=== PATIENT | female | born 1935 | race Caucasian/White ===

== ENCOUNTER → 2017-11-20 | Outpatient (CLI) | payer MEDICARE, OTHER ==
[~2017-11-20] MED LIST: DITROPAN 5MG TAB5 MG PO; DULCOLAX S10 MG/SUPP RC; GOOD NEIGH1200 MG/15 PO; LUTEIN20 M1 PO; MASON NATURAL1200 MG PO; NORCO 325 MG-51 TAB PO; OS-CAL 500 + D1 TAB PO; PROZAC 20MG20 MG PO; SENOKOT S 50 MG1 TAB PO; THERAGRAN M1 UDTAB PO; TOPROL XL 25MG25 MG PO; TOPROL XL 50MG50 MG PO; TOPROL XL100 MG PO; TYLENOL 325MG325 MG PO; XARELTO15 MG PO; ZESTRIL 20MG TA20 MG PO
== END ==
LOC: COL.LAB 12:48
DX: Z01.812 Encounter for preprocedural laboratory examination (principal); M25.551 Pain in right hip

== ENCOUNTER 2018-09-03 10:21 | Day surgery (SDC) | payer MEDICARE, OTHER ==
[~2018-09-03] VITALS: Ht 165.1 cm; Wt 65.9 kg
[~2018-09-03 10:21] MED LIST changes: +CALCIUM 600600 M2 PO; +CALCIUM CARBON650 M2 PO; +CARDIZEM CD 18180 MG PO; +CORDARONE200 MG/TAB PO; +DESENEX TP; +DIFLUCAN150 MG PO; +MULTIPLE VITAMI1 CAP PO; +MYRBETR50MG PO; +NORCO 325 MG-7.1 TAB PO; +OMEGA-3 1000 MG1 CAP PO; +PACERONE400 MG PO; +PYRIDIUM 100MG100 MG PO; +TOVIAZ4 MG PO; +ULTRAM 50MG TAB50 MG PO; +XARELTO20 MG PO
[2018-09-03 10:45] VITALS: BP 163/86; PULSE 92; TEMP 97.6
[2018-09-03] MEDS ORDERED: VTAMINC250TA PO (10:49)
[2018-09-03] MEDS ORDERED: TOPROL XL100 MG PO (10:50)
[2018-09-03] MEDS ORDERED: WELCHOL 625MG625 MG PO (10:51)
[2018-09-03] MEDS ORDERED: PACERONE200 MG PO (10:51)
[2018-09-03 13:57] VITALS: BP 146/86; PULSE 76; TEMP 97.5
[2018-09-03] MEDS ORDERED: NORCO 325 MG-51 TAB PO (14:00)
[2018-09-03 14:15] VITALS: BP 160/78; PULSE 72
[2018-09-03 14:30] VITALS: BP 141/62; PULSE 70
== END 2018-09-03 15:10 | disposition home or self-care (01) ==
LOC: SDCO 10:21
DX: C67.9 Malignant neoplasm of bladder, unspecified (principal); I10 Essential (primary) hypertension; K21.9 Gastro-esophageal reflux disease without esophagitis; I48.91 Unspecified atrial fibrillation; F32.9 Major depressive disorder, single episode, unspecified; D64.9 Anemia, unspecified; Z90.710 Acquired absence of both cervix and uterus; Z79.01 Long term (current) use of anticoagulants; Z95.0 Presence of cardiac pacemaker; Z87.891 Personal history of nicotine dependence; Z82.49 Family history of ischemic heart disease and other diseases of the circulatory system
CPT/HCPCS: C1788; J0690; J1644; J2704; J3010; J7120

== ENCOUNTER 2018-09-30 19:47 | Inpatient (IN) | payer MEDICARE, OTHER ==
[~2018-09-30] VITALS: Ht 165.1 cm; Wt 62.3 kg
[~2018-09-30 19:47] MED LIST changes: +PACERONE200 MG PO; +VTAMINC250TA PO; +WELCHOL 625MG625 MG PO
--- NOTE | 2018-09-30 20:00 | NUR ---
Patient arrived to floor by EMS from [facility]. Patient reports some mild pain to lower Abd with movement, denies n/v at this time. Urostomy present to right lower quadrant, cloudy yellow urine present with sediment. Patient has port to right chest, accessed by [facility] ER prior to transfer. INT to right FA present as well. NS with KCL infusing at 200 ml/hr through port. Patient's family accompanied patient to floor. Vitals stable at this time. No other needs observed/reported.
[2018-09-30] MEDS ORDERED: CEFTIN 250250 MG/TAB PO (20:38)
[2018-09-30] MEDS ORDERED: K-DUR20 MEQ PO (20:41)
[2018-09-30 21:12] VITALS: BP 103/40; PULSE 70; TEMP 98.8
[2018-09-30 23:53] LABS: CALCIUM 7.1 mg/dL (8.4-10.2); CREATININE, serum 2.8 mg/dL (0.52-1.25)
[2018-09-30 23:59] LABS: POTASSIUM 2.6 mmol/L (3.4-5.0)
[2018-10-01] VITALS (7 sets, daily range): BP systolic 107–132; BP diastolic 47–59; PULSE 69–78; TEMP 97.6–98.8
[2018-10-01 05:54] LABS: MEAN CELL VOLUME 86 fl (80.0-100.0); MEAN CORPUSCULAR HGB CONC 33 g/dl (33.0-37.0); PLATELET COUNT 83 K/mm3 (130-400); RED BLOOD COUNT 2.77 M/mm3 (4.10-5.30); REDCELL DISTRIBUTION WIDTH-CV 17.4 % (11.5-14.5)
[2018-10-01 05:55] LABS: HEMATOCRIT 23.8 % (37.0-47.0); HEMOGLOBIN 7.9 g/dl (12.5-16.0); MEAN CORPUSCULAR HEMOGLOBIN 29 pg (27.0-31.0)
--- NOTE | 2018-10-01 06:02 | NUR ---
Radiology notified of consult for abcess drain. Dr. Abraham with nephrology notified of consult, stated that he would be in later this morning to see her.
[2018-10-01 06:06] LABS: INR 2.7 (0.8-3.0); PROTHROMBIN TIME 31.1 SECONDS (9.7-12.8)
[2018-10-01 06:14] LABS: ALBUMIN 2.5 gm/dL (3.5-5.0); BILIRUBIN,TOTAL 0.2 mg/dL (0.0-1.0); CALCIUM 7.3 mg/dL (8.4-10.2); CREATININE, serum 2.65 mg/dL (0.52-1.25); POTASSIUM 3.3 mmol/L (3.4-5.0)
[2018-10-01 06:17] LABS: MUCOUS Present /lpf; PH 6 (5-8); SQUAMOUS EPITHELIAL 0-2 /hpf; URINE APPEARANCE Hazy; URINE BACTERIA Moderate /hpf; URINE BILIRUBIN Negative (NEGATIVE); URINE BLOOD 2+ (NEGATIVE); URINE COLOR Yellow; URINE GLUCOSE Negative (NEGATIVE); URINE KETONE Negative (NEGATIVE); URINE LEUKOCYTE ESTERASE 3+ (NEGATIVE); URINE NITRATE Positive (NEGATIVE); URINE PROTEIN(semi-quant) 1+ (NEGATIVE); URINE UROBILINOGEN Negative (NEGATIVE)
[2018-10-01 06:22] LABS: COLLECTION METHOD CLEAN CATCH
[2018-10-01 06:56] LABS: ANISOCYTOSIS 1+; BAND 34 % (0-10); LYMPHOCYTE 13 % (20.0-51.0); METAMYELOCYTE 1 % (0-0); NEUTROPHILS 49 % (42.0-75.2); PLATELET ESTIMATE NORMAL (NORMAL)
--- NOTE | 2018-10-01 08:37 | NUR ---
Pt. pleasant in room with daughter in law at bedside. pt. shivering but no temp, warm blanket applied. Pt. complaining of pain 3-4/10 in lower abdomen. [place] 1 tab given po 5. Will reevaluate pain. Report recieved from primary RN Ruth. Dr. Francisco has been in to see pt. Bed in low position with call light within reach- maintaining NPO status.
--- NOTE | 2018-10-01 10:05 | NUR ---
SW met with the patient to discuss discharge plan. The patient lives in [place] with her daughter, Oliva. She reports independence with ADLs prior to hospitalization and has a walker. The patient's PCP is Dr. Katty Tse and she receives her medications at [facility]. She reports no difficulties obtaining her meds. The patient's advanced directives are in EMR. PT/OT have been ordered. SW to continue to follow.
--- NOTE | 2018-10-01 12:05 | NUR ---
PATIENT GOING DOWN TO CT STAT
--- NOTE | 2018-10-01 13:38 | NUR ---
Pt. is constantly getting up to go to the bathroom. Frequent episodes of diarrhea. Pt. has had 10 episodes of diarrhea since 0615 am. Pt. denies any pain- however he is grimacing and guarding. Denies wanting anything for pain. Will accept a heat pack. Pt. dressing is full with reddish/yellowish tinged drainage without odor. Cleansed again at 1330 with NS and 4x4 gauze pads applied, ABD placed over 4x4, paper tape in place to secure. Pt. in bed watching tv. Pleasant and cooperative. Call light within reach. Bed in lowest position. Reported off to primary nurseHelen.
--- NOTE | 2018-10-01 13:45 | NUR ---
LAB AT BEDSIDE TO DRAW BLOOD CULTURES
--- NOTE | 2018-10-01 13:54 | NUR ---
Pt. is pleasant lying in bed in lowest position with call light within reach. Pt. is complaining of pain in her lower abdomen and has received norco two times today - she states that that helps her pain and pain score does decrease afterwards. Pt. has had fluoroscopy and CT done today. Pt. is allowed to have water but nothing else per her primary nurse, Ruth. Report given to Ruth about pt. condition and transferring care to her.
[2018-10-02 03:22] VITALS: BP 124/59; PULSE 73; TEMP 98.3
--- NOTE | 2018-10-02 05:14 | NUR ---
PT REMAINS IN BED THIS SHIFT. APPEARED TO HAVE SLEPT WELL THIS NOC. HAD PRN PAIN MED AND NAUSEA MED AT BEDTIME. NO FURTHER C/O AFTERWARD. VOICED THAT SHE HOPES TO BE ABLE TO EAT SOMETHING AFTER HCP MAKE ROUNDS IN THE AM. NO OTHER ISSUES OR CONERNS THIS SHIFT.
[2018-10-02 06:07] LABS: MEAN CELL VOLUME 88 fl (80.0-100.0); MEAN CORPUSCULAR HGB CONC 32 g/dl (33.0-37.0); MEAN PLATELET VOLUME 10.6 fl (7.4-10.4); PLATELET COUNT 128 K/mm3 (130-400); RED BLOOD COUNT 2.79 M/mm3 (4.10-5.30); REDCELL DISTRIBUTION WIDTH-CV 17.8 % (11.5-14.5)
[2018-10-02 06:17] LABS: HEMATOCRIT 24.4 % (37.0-47.0); HEMOGLOBIN 7.9 g/dl (12.5-16.0); MEAN CORPUSCULAR HEMOGLOBIN 28 pg (27.0-31.0)
[2018-10-02 06:28] LABS: ALBUMIN 2.3 gm/dL (3.5-5.0); BILIRUBIN,TOTAL 0.3 mg/dL (0.0-1.0); CALCIUM 7.6 mg/dL (8.4-10.2); CREATININE, serum 2.14 mg/dL (0.52-1.25); MAGNESIUM 1.3 mg/dL (1.6-2.3); POTASSIUM 3.1 mmol/L (3.4-5.0); TOTAL PROTEIN 4.9 gm/dL (6.4-8.2)
[2018-10-02 06:57] LABS: ANISOCYTOSIS 1+; BAND 47 % (0-10); LYMPHOCYTE 11 % (20.0-51.0); NEUTROPHILS 38 % (42.0-75.2); PLATELET ESTIMATE NORMAL (NORMAL)
--- NOTE | 2018-10-02 08:14 | NUR ---
Patient in bed, remains NPO for possible surgical procedure today. Is alert and oriented x3. Has a right chest Portacath with NS infusing at 125cc/hr. Has a right forearm SL which flushed easily. Abdomen soft, urostomy patent to right lower abdomen, BS active x4 quadrants. Reports passing flatus. Potassium replacement infusing via IV per port. No complaints at this time. Reports pain 0/10.
[2018-10-02 08:27] VITALS: BP 133/60; PULSE 70; TEMP 98.3
--- NOTE | 2018-10-02 09:45 | NUR ---
OT in room with patient.
--- NOTE | 2018-10-02 10:07 | NUR ---
Pt. awake and pleasant upon my arrival. In bed, pt has worked with PT today and walked around the hallway- did pretty well. Pt. did have an incontinent incident pericare was provided. Urine is not as odorous as yesterday and less sediment if any. Pt. states she feels much better today. Will continue to monitor.
--- NOTE | 2018-10-02 10:09 | NUR ---
PT with pt. at this time.
--- NOTE | 2018-10-02 10:09 | NUR ---
Up in chair at bedside with PT.
--- NOTE | 2018-10-02 10:44 | NUR ---
Dr. Abraham in room with patient.
[2018-10-02 12:41] VITALS: BP 141/65; PULSE 72; TEMP 98.2
--- NOTE | 2018-10-02 13:15 | NUR ---
Pt. is in good spirits has family at bedside. Has eaten her full meal and has been in her chair for 2 hours today. She ambulated well with PT today. States she wants to take a bath tomorrow - Pt. is open to getting a bed bath tonight when family leaves. Will pass on to primary nurse, Analy SHANKS.
--- NOTE | 2018-10-02 14:58 | NUR ---
Social work student met with the patient and her daughter, Anastasia (p# [phone]). Upon discharge the patient may require home health services, so social work student provided a list of agencies that serve the [facility]. The patient's daughter, Oliva (p#[phone]) lives with the patient and she will be assisting the patient in making the decision. enrollment services dean will continue to follow.
[2018-10-02 15:58] VITALS: BP 104/43; PULSE 72; TEMP 97.9
--- NOTE | 2018-10-02 16:45 | NUR ---
Patient in bed, is alert or oriented x3. Remarked she saw "two big guys standing by the pole by the nurses station, watching the nurses and eating their lunch." Family at bedside and asked if patient had been given any pain medication. Discussed lab values with family for potential reason for awkward remarks. Will monitor and report to next shift to monitor for changes.
--- NOTE | 2018-10-02 17:58 | NUR ---
Took only bites of her Thai muffin before she had to have a BM. Stool semi liquid. Urostomy draining without problem, sediment present. In bed watching TV.
[2018-10-02 19:49] VITALS: BP 126/52; PULSE 71; TEMP 98
--- NOTE | 2018-10-02 20:00 | NUR ---
Patient resting in bed watching television at this time. Patient is alert and oriented, answers questions appropriately. Patient minimal x1 assist to bathroom where she is continent of bowel and urostomy is intact. Patient denies pain or needs at this time, call light within reach.
[2018-10-03 04:13] VITALS: BP 139/62; PULSE 73; TEMP 97.5
--- NOTE | 2018-10-03 05:47 | NUR ---
Patient up several times overnight with minimal x1 assist to bathroom where she was continent of bowel and bladder, patient continues to have small loose stools. Patient became mildly confused overnight, reoriented to place easily. Patient slept little, and finally requested to get up to the recliner at approximately 0230. Patient continues to deny pain or further needs, call light within reach, chair alarm on.
[2018-10-03 06:42] LABS: MEAN CELL VOLUME 86 fl (80.0-100.0); MEAN CORPUSCULAR HGB CONC 33 g/dl (33.0-37.0); MEAN PLATELET VOLUME 11.1 fl (7.4-10.4); PLATELET COUNT 195 K/mm3 (130-400); RED BLOOD COUNT 3.03 M/mm3 (4.10-5.30); REDCELL DISTRIBUTION WIDTH-CV 18.1 % (11.5-14.5)
[2018-10-03 06:45] LABS: HEMOGLOBIN 8.6 g/dl (12.5-16.0); MEAN CORPUSCULAR HEMOGLOBIN 28 pg (27.0-31.0)
[2018-10-03 06:54] LABS: CALCIUM 8.2 mg/dL (8.4-10.2); CREATININE, serum 1.82 mg/dL (0.52-1.25)
[2018-10-03 06:58] LABS: POTASSIUM 2.6 mmol/L (3.4-5.0)
[2018-10-03 07:41] VITALS: BP 122/52; PULSE 71; TEMP 08.4
[2018-10-03 07:43] LABS: ANISOCYTOSIS 1+; BAND 26 % (0-10); EOSINOPHIL 1 % (0-4); LYMPHOCYTE 13 % (20.0-51.0); NEUTROPHILS 52 % (42.0-75.2); PLATELET ESTIMATE NORMAL (NORMAL)
--- NOTE | 2018-10-03 08:00 | NUR ---
PATIENT IS UP TO THE CHAIR THIS MORNING WITH HER BREAKFAST TRAY. PATIENT IS A&O. VSS. TELE IN PLACE. BOWEL SOUNDS ACTIVE ALL FOUR QUADRANTS. PATIENT TOLERATING FOOD & LIQUIDS WITHOUT ANY COMPLAINTS OF N/V. UROSTOMY TO ABDOMINAL RIGHT QUADRANT. STOMA IS RED & ROUND. UROSTOMY WAFER AND BAG ARE CD&I. CLOUDY, PALE YELLOW URINE PRESENT IN UROSTOMY BAG. POSITIVE PEDAL PULSES EQUAL BILATERALLY. CAP REFILL <3 SECONDS. PATIENT STATES THAT SHE HAS A PRODUCTIVE COUGH WITH SCANT AMOUNTS OF THIN WHITE SPUTUM. ALL LUNG CHAN CLEAR TO AUSCULTATION. PATIENT DENIES ANY SHORTNESS OF BREATH. INT TO RIGHT FOREARM LEAKING. RIGHT FOREARM INT DC'D. PATIENT TOLERATED WELL. PORTACATH TO RIGHT CHEST ACCESSED WITH IV FLUIDS INFUSING VIA PUMP. PATIENT DENIES ANY PAIN AT THIS TIME. CALL LIGHT WITHIN REACH. NO OTHER NEEDS AT THIS TIME.
--- NOTE | 2018-10-03 09:30 | NUR ---
RECIEVED CALL FROM LAB WITH POSITIVE URINE CULTURE RESULTS FOR MRSA. TOOLMAKER HELPER CALLED AND NOTIFIED. CONTACT PRECAUTION CART AND SIGNS PLACED OUTSIDE PATIENT ROOM.
[2018-10-03 11:25] VITALS: BP 133/57; PULSE 83; TEMP 98.5
--- NOTE | 2018-10-03 14:15 | NUR ---
CALLED AND NOTIFIED OF ID CONSULT FOR ANTIBIOTIC THERAPY.
[2018-10-03 15:40] VITALS: BP 143/63; PULSE 70; TEMP 98.7
--- NOTE | 2018-10-03 15:45 | NUR ---
REPORT GIVEN TO RIMMA SHARMA.
--- NOTE | 2018-10-03 16:12 | NUR ---
Received report from RIMMA Naqvi, and assumed care. pt resting in bed, no acute s/s of distress noted, denies pain. visitors at bedside. tele monitoring, pt has pacemaker. Portacath in place to R chest, ZOsyn IV infusing at this time. Pt has urostomy to R side. pt on potassium protocol. contact, fall and safety precautions in place, will continue to monitor.
--- NOTE | 2018-10-03 18:08 | NUR ---
pt resting in bed, no acute s/s of distress noted, denies apin. pt A&Ox4, follows commands and cooperates with care. resp even and unlabored. pt has portacath to R chest, Vancomycin infusing at this time. tele monitoring. contact, fall and safety precautions in place, will report to night nurse.
[2018-10-03 18:14] LABS: CALCIUM 7.7 mg/dL (8.4-10.2); CREATININE, serum 1.7 mg/dL (0.52-1.25)
[2018-10-03 18:21] LABS: POTASSIUM 2.5 mmol/L (3.4-5.0)
[2018-10-03 19:47] VITALS: BP 148/63; PULSE 71; TEMP 97.6
--- NOTE | 2018-10-03 22:20 | NUR ---
RESTING QUIETLY. PT DENIES PAIN AT REST.
[2018-10-04 01:36] LABS: MEAN CELL VOLUME 86 fl (80.0-100.0); MEAN CORPUSCULAR HGB CONC 33 g/dl (33.0-37.0); MEAN PLATELET VOLUME 10.2 fl (7.4-10.4); PLATELET COUNT 194 K/mm3 (130-400); RED BLOOD COUNT 2.59 M/mm3 (4.10-5.30); REDCELL DISTRIBUTION WIDTH-CV 18.2 % (11.5-14.5)
[2018-10-04 01:37] LABS: HEMATOCRIT 22.2 % (37.0-47.0); HEMOGLOBIN 7.4 g/dl (12.5-16.0); MEAN CORPUSCULAR HEMOGLOBIN 29 pg (27.0-31.0)
[2018-10-04 01:51] LABS: ALBUMIN 2.3 gm/dL (3.5-5.0); BILIRUBIN,TOTAL 0.2 mg/dL (0.0-1.0); CALCIUM 7.7 mg/dL (8.4-10.2); CREATININE, serum 1.62 mg/dL (0.52-1.25); TOTAL PROTEIN 4.9 gm/dL (6.4-8.2)
[2018-10-04 01:53] LABS: POTASSIUM 2.7 mmol/L (3.4-5.0)
[2018-10-04 02:24] LABS: BAND 17 % (0-10); BASOPHIL 1 % (0-2); EOSINOPHIL 1 % (0-4); LYMPHOCYTE 8 % (20.0-51.0); METAMYELOCYTE 18 % (0-0); NEUTROPHILS 54 % (42.0-75.2); PLATELET ESTIMATE NORMAL (NORMAL)
[2018-10-04 02:25] LABS: HELMET CELLS 1+; OVALOCYTES 1+; SCHISTOCYTES 1+
[2018-10-04 02:26] LABS: ANISOCYTOSIS 2+; TARGET CELLS 1+
[2018-10-04 04:46] VITALS: BP 162/73; PULSE 70; TEMP 98.7
[2018-10-04 07:20] VITALS: BP 160/70; PULSE 70; TEMP 98.5
[2018-10-04 12:31] VITALS: BP 141/70; PULSE 73; TEMP 98.3
[2018-10-04 16:51] VITALS: BP 160/69; PULSE 72; TEMP 98.3
[2018-10-04 18:57] LABS: CREATININE, serum 1.4 mg/dL (0.52-1.25); MAGNESIUM 2.1 mg/dL (1.6-2.3); POTASSIUM 3.3 mmol/L (3.4-5.0)
--- NOTE | 2018-10-04 19:13 | NUR ---
PATIENT UP TO THE CHAIR FOR MOST OF DAY SHIFT. PATIENT HAS BEEN TOLERATING FOOD ORALLY TODAY WITHOUT ANY N/V. PATIENT HAD THREE INCONTINENT LOOSE MUCOUSY STOOLS. PATIENT HAS DENIED ANY COMPLAINTS OF PAIN THROUGHOUT THE SHIFT. UROSTOMY APPLICANCE CHANGED WITH GILDARDO WAFER [id number] & GILDARDO BAG [id number]. PATIENT TOLERATED WELL. REPORT GIVEN TO MELINA ANDERSON.
[2018-10-04 20:00] VITALS: BP 143/70; PULSE 73; TEMP 98.6
--- NOTE | 2018-10-04 20:00 | NUR ---
Patient resting in bedside recliner at this time. Patient is alert and oriented, answers questions appropriately. Patient ambulated from chair to bed with minimal/SBA. IVF infusing to port in right chest per order. Urostomy is draining clear pale yellow urine, small amounts of mucous visible when drained. Patient currently denies pain or further needs, call light within reach, bed alarm on, contact precautions in place.
[2018-10-04 23:34] VITALS: BP 150/69; PULSE 71; TEMP 98.3
[2018-10-05 02:33] LABS: MEAN CELL VOLUME 86 fl (80.0-100.0); MEAN CORPUSCULAR HGB CONC 33 g/dl (33.0-37.0); PLATELET COUNT 255 K/mm3 (130-400); RED BLOOD COUNT 2.74 M/mm3 (4.10-5.30); REDCELL DISTRIBUTION WIDTH-CV 18.5 % (11.5-14.5)
[2018-10-05 02:42] LABS: HEMATOCRIT 23.6 % (37.0-47.0); HEMOGLOBIN 7.7 g/dl (12.5-16.0); MEAN CORPUSCULAR HEMOGLOBIN 28 pg (27.0-31.0)
[2018-10-05 02:47] LABS: CREATININE, serum 1.36 mg/dL (0.52-1.25); MAGNESIUM 3.1 mg/dL (1.6-2.3); POTASSIUM 3.9 mmol/L (3.4-5.0)
[2018-10-05 03:38] LABS: ANISOCYTOSIS 1+; BAND 7 % (0-10); HYPOCHROMIA 1+; METAMYELOCYTE 1 % (0-0); MYELOCYTE 1 % (0-0); NEUTROPHILS 78 % (42.0-75.2); PLATELET ESTIMATE NORMAL (NORMAL); POIKILOCYTOSIS 2+; SCHISTOCYTES 1+; TARGET CELLS 2+
[2018-10-05 03:39] LABS: LYMPHOCYTE 12 % (20.0-51.0)
[2018-10-05 03:40] LABS: OVALOCYTES 1+
[2018-10-05 04:00] VITALS: BP 165/76; PULSE 72; TEMP 98.6
--- NOTE | 2018-10-05 06:24 | NUR ---
Patient has rested well overnight. Patient has remained alert and oriented, no evidence of confusion. Patient has had no episodes of loose stools this shift, and good output from urostomy. Patient was able to request urostomy be emptied when needed and was cooperative with cares. IV potassium and magnesium infused per orders. Patient continues to deny pain or further needs, call light within reach, bed alarm in place.
[2018-10-05 07:45] VITALS: BP 170/71; PULSE 70; TEMP 98.2
--- NOTE | 2018-10-05 09:44 | NUR ---
JUMANA met with patients children as they were leaving who said patient and family would prefer Swing bed for patient. JUMANA faxed referral to [facility] swing bed.
[2018-10-05 10:43] LABS: PATHOLOGY DIFF REVIEW OK
[2018-10-05 11:17] LABS: PATHOLOGY DIFF REVIEW OK
[2018-10-05 11:28] VITALS: BP 162/74; PULSE 72; TEMP 97.5
--- NOTE | 2018-10-05 11:40 | NUR ---
JUMANA obtained choice form for patient to [facility] Swing bed. reports possible dc wed.
[2018-10-05 15:18] VITALS: BP 164/73; PULSE 73; TEMP 98.9
[2018-10-05 19:51] VITALS: BP 139/65; PULSE 70; TEMP 98.3
--- NOTE | 2018-10-05 20:00 | NUR ---
PT IN WAS SITTING IN RECLINER, BUT ASSISTED INTO BED. PT HAS UROSTOMY BAG AND IT WAS ATTACKED TO CATHETER BAG FOR DRAINAGE, AND DRAINING WELL. PT DENIES PAIN OR DISCOMFORT. RESTING WELL IN BED WITH NO NEEEDS AT THIS TIME. CALL LIGHT WITHIN REACH.
[2018-10-06 00:54] VITALS: BP 149/68; PULSE 71; TEMP 98.8
[2018-10-06 03:51] VITALS: BP 164/73; PULSE 71; TEMP 97.8
--- NOTE | 2018-10-06 05:57 | NUR ---
PT HAD AN UNEVENTFUL NIGHT. PT SLEPT/RESTED MOST OF NIGHT. PT DID HAVE AN INCONTINENT EPISODE OF BM, WHICH SHE WAS CHANGED AND CLEANED. NO FURTHER NEEDS AT THIS TIME. CALL LIGHT WITHIN REACH.
[2018-10-06 06:18] LABS: HEMATOCRIT 24.3 % (37.0-47.0); MEAN CELL VOLUME 86 fl (80.0-100.0); MEAN CORPUSCULAR HEMOGLOBIN 28 pg (27.0-31.0); MEAN CORPUSCULAR HGB CONC 33 g/dl (33.0-37.0); MEAN PLATELET VOLUME 10.4 fl (7.4-10.4); PLATELET COUNT 328 K/mm3 (130-400); RED BLOOD COUNT 2.82 M/mm3 (4.10-5.30); REDCELL DISTRIBUTION WIDTH-CV 18.6 % (11.5-14.5)
[2018-10-06 06:32] LABS: ALBUMIN 2.5 gm/dL (3.5-5.0); BILIRUBIN,TOTAL 0.1 mg/dL (0.0-1.0); CREATININE, serum 1.23 mg/dL (0.52-1.25); POTASSIUM 3.9 mmol/L (3.4-5.0); TOTAL PROTEIN 5.2 gm/dL (6.4-8.2)
[2018-10-06 07:10] LABS: ANISOCYTOSIS 1+; BAND 3 % (0-10); LYMPHOCYTE 10 % (20.0-51.0); MYELOCYTE 1 % (0-0); NEUTROPHILS 82 % (42.0-75.2)
[2018-10-06 07:11] LABS: HYPOCHROMIA 1+
[2018-10-06 08:17] VITALS: BP 155/66; PULSE 71; TEMP 98.4
--- NOTE | 2018-10-06 09:24 | NUR ---
pt in recliner, no acute s/s of distress noted, resp even and unlabored, pt on RA. pt A&Ox4, follows commands and cooperates with care. Tele monitoring, A-paced HR 68. pt has urostomy. port noted to R chest with one lumen, flushes easily and has blood return. pt on Patassium protocol. IVF infusing. fall and safety precautions in place, will continue to monitor.
[2018-10-06 13:15] VITALS: BP 153/70; PULSE 71; TEMP 98.2
--- NOTE | 2018-10-06 17:34 | NUR ---
pt in recliner, had a period of continence of loose stool. no acute s/s of distress noted, denies pain. resp even and unlabored, pt on RA. Urostomy in place with dependent drainage. pt has port to R chest, IVF infusing. contact, fall and safety precautions in place, will continue to monitor.
[2018-10-06 19:58] VITALS: BP 172/80; PULSE 71; TEMP 98.2
--- NOTE | 2018-10-06 20:00 | NUR ---
Pt. sitting up in bed. Pt. is A&OX3, assessment complete. PORT to rt. chest patent, IV fluids infusing per orders. Urostomy to DD, clear yellow urine noted. Pt. denies pain or other needs, call light within reach.
[2018-10-07 00:21] VITALS: BP 147/66; PULSE 70; TEMP 98.5
[2018-10-07 05:41] VITALS: BP 153/69; PULSE 70; TEMP 98.6
[2018-10-07 06:05] LABS: MEAN CELL VOLUME 88 fl (80.0-100.0); MEAN CORPUSCULAR HGB CONC 32 g/dl (33.0-37.0); MEAN PLATELET VOLUME 10.4 fl (7.4-10.4); PLATELET COUNT 378 K/mm3 (130-400); RED BLOOD COUNT 2.82 M/mm3 (4.10-5.30); REDCELL DISTRIBUTION WIDTH-CV 18.8 % (11.5-14.5)
[2018-10-07 06:09] LABS: HEMATOCRIT 24.7 % (37.0-47.0); HEMOGLOBIN 7.9 g/dl (12.5-16.0); MEAN CORPUSCULAR HEMOGLOBIN 28 pg (27.0-31.0)
--- NOTE | 2018-10-07 06:17 | NUR ---
Pt. slept well through the night. Pt. remains A&OX3. PORT to rt. chest patent, IV fluids infusing per orders. Pt. denies pain or other needs, call light within reach.
[2018-10-07 06:23] LABS: CALCIUM 8.1 mg/dL (8.4-10.2); CREATININE, serum 1.27 mg/dL (0.52-1.25); POTASSIUM 4.1 mmol/L (3.4-5.0)
[2018-10-07 06:54] LABS: BAND 7 % (0-10); LYMPHOCYTE 9 % (20.0-51.0); MYELOCYTE 6 % (0-0); NEUTROPHILS 76 % (42.0-75.2); PLATELET ESTIMATE NORMAL (NORMAL)
[2018-10-07 06:55] LABS: ANISOCYTOSIS 1+
[2018-10-07 07:49] VITALS: BP 165/72; PULSE 71; TEMP 98.2
--- NOTE | 2018-10-07 08:56 | NUR ---
JUMANA consulted with nurse and hospitalist who report patient isn't ready for discharge today but it will hopefully be tomorrow. JUMANA updated Rowena at [facility] swing bed.
--- NOTE | 2018-10-07 09:35 | NUR ---
Patient alert and oriented, answers questions appropriately. See assessment. Urostomy tube patent and draining clear zainab urine. No c/o at this time
[2018-10-07 12:09] VITALS: BP 135/70; PULSE 74; TEMP 98.4
[2018-10-07 16:39] VITALS: BP 141/70; PULSE 74; TEMP 99
[2018-10-07 21:18] VITALS: BP 153/66; PULSE 70; TEMP 98.6
[2018-10-08 02:03] VITALS: BP 115/78; PULSE 77; TEMP 98.5
[2018-10-08 07:57] VITALS: BP 159/73; PULSE 70; TEMP 98.4
[2018-10-08 08:41] LABS: MEAN CELL VOLUME 88 fl (80.0-100.0); MEAN CORPUSCULAR HGB CONC 33 g/dl (33.0-37.0); MEAN PLATELET VOLUME 10.4 fl (7.4-10.4); PLATELET COUNT 457 K/mm3 (130-400); RED BLOOD COUNT 2.73 M/mm3 (4.10-5.30); REDCELL DISTRIBUTION WIDTH-CV 19.1 % (11.5-14.5)
[2018-10-08 08:43] LABS: HEMOGLOBIN 7.8 g/dl (12.5-16.0); MEAN CORPUSCULAR HEMOGLOBIN 29 pg (27.0-31.0)
[2018-10-08 08:54] LABS: CALCIUM 7.7 mg/dL (8.4-10.2); CREATININE, serum 1.31 mg/dL (0.52-1.25)
--- NOTE | 2018-10-08 09:00 | NUR ---
Pt is awake and A/Ox4, sitting up in recliner finishing breakfast. She denies any pain or discomfort at this time. Port to right chest is free of complications. Urostomy is draining blood-tinged urine. Pt updated on plan of care, expressed understanding. Denies any further needs, will monitor.
[2018-10-08 09:18] LABS: BAND 8 % (0-10); LYMPHOCYTE 24 % (20.0-51.0); METAMYELOCYTE 1 % (0-0); NEUTROPHILS 64 % (42.0-75.2)
[2018-10-08 09:19] LABS: ANISOCYTOSIS 1+; HYPOCHROMIA 1+; PLATELET ESTIMATE INCREASED (NORMAL)
[2018-10-08 09:52] VITALS: BP 159/73; PULSE 70; TEMP 98.4
[2018-10-08] MEDS ORDERED: MIDAMOR 5MG TAB5 MG PO (09:53)
[2018-10-08] MEDS ORDERED: AMOXICILLIN 8751 TAB PO (09:55)
[2018-10-08] MEDS ORDERED: SEPTRA DS 8001 TAB PO (09:55)
[2018-10-08] MEDS ORDERED: XARELTO15 MG PO (10:15)
--- NOTE | 2018-10-08 10:22 | NUR ---
SW met with patient to present IM and verbally discuss the contents. Patient is agreeable and signs the form. Patient is discharging today to [facility] bed for skilled care. SW called patients son Adalberto to come and transport her.
--- NOTE | 2018-10-08 10:46 | NUR ---
JUMANA faxed discharge to [facility] bed. Nurse provided with nurse to nurse number.
--- NOTE | 2018-10-08 10:54 | NUR ---
Pt was discharged to [facility] for swing bed. Pt was transfered via private vehicle by sonAdalberto. Port was deaccessed prior to leaving, needle intact. Report called to nurse Mckenzie.
== END 2018-10-08 10:56 | disposition swing bed (61) | DRG 757 ==
LOC: SURG 19:47
PROVIDERS: Internal Medicine; Nurse Practitioner; Physician Assistant; ADMIT Hospitalist
DX: N73.0 Acute parametritis and pelvic cellulitis (principal); E43 Unspecified severe protein-calorie malnutrition; N17.9 Acute kidney failure, unspecified; N13.6 Pyonephrosis; I10 Essential (primary) hypertension; I48.91 Unspecified atrial fibrillation; N94.89 Other specified conditions associated with female genital organs and menstrual cycle; C67.8 Malignant neoplasm of overlapping sites of bladder; Z79.01 Long term (current) use of anticoagulants; Z93.2 Ileostomy status; F17.210 Nicotine dependence, cigarettes, uncomplicated; E87.6 Hypokalemia; D69.6 Thrombocytopenia, unspecified; E83.42 Hypomagnesemia; Z68.20 Body mass index [BMI] 20.0-20.9, adult; B95.62 Methicillin resistant Staphylococcus aureus infection as the cause of diseases classified elsewhere; Z85.828 Personal history of other malignant neoplasm of skin; B95.2 Enterococcus as the cause of diseases classified elsewhere; Z95.0 Presence of cardiac pacemaker
CPT/HCPCS: 99222-AI; 99231-AI; 99232-AI; 99239; A4216; J0713; J2020; J2405; J2543; J3370; J3475; J3480; J7030; J7050

== ENCOUNTER 2018-12-14 11:02 | Observation (INO) | payer MEDICARE, OTHER ==
[2018-12-14] VITALS (10 sets, daily range): BP systolic 93–129; BP diastolic 40–84; PULSE 70–80; TEMP 97.3–98.1
[~2018-12-14] VITALS: Ht 165.1 cm; Wt 55.5 kg
[~2018-12-14 11:02] MED LIST changes: +AMOXICILLIN 8751 TAB PO; +CEFTIN 250250 MG/TAB PO; +K-DUR20 MEQ PO; +MIDAMOR 5MG TAB5 MG PO; +SEPTRA DS 8001 TAB PO
[2018-12-14] MEDS ORDERED: CORDARONE200 MG/TAB PO (11:58)
[2018-12-14] MEDS ORDERED: CARTIA XT120 MG PO (11:59)
[2018-12-14] MEDS ORDERED: XARELTO20 MG PO (11:59)
--- NOTE | 2018-12-14 17:38 | NUR ---
Patient has done well post op. Vss on room air. Tele on per orders. Illeocoduit to night bag with clear pink output. Ivf per orders. She tolerated chicken noodle soup without nausea. She denies pain. Scds ble. Overall doing well. Will monior.
[2018-12-14 18:09] LABS: CALCIUM 8.5 mg/dL (8.4-10.2); CREATININE, serum 2.52 mg/dL (0.52-1.25); POTASSIUM 4.3 mmol/L (3.4-5.0)
--- NOTE | 2018-12-14 18:32 | NUR ---
Sayra assisted into the chair. She did well. She enjoyed Pie and ice cream for dinner. minimal complaints. Will monitor.
--- NOTE | 2018-12-14 20:00 | NUR ---
Patient in bed resting. Alert and oriented x3. Shift assessment complete. Denies pain at this time. Ileal conduit to giles with reddish tinged urine. Denies pain at this time. Denies further needs at this time.
[2018-12-15 00:28] VITALS: BP 92/51; PULSE 87; TEMP 98.3
[2018-12-15 03:21] VITALS: BP 108/53; PULSE 85; TEMP 98.4
--- NOTE | 2018-12-15 06:28 | NUR ---
Patient has rested well through the night. Minimal needs. Continues to deny pain through the night. Ileal conduit to giles bag maintained through the night. Giles with clear yellow urine present. IV fluids infusing via pump. Denies further needs at this time. Will report off to day shift.
[2018-12-15 07:11] LABS: CALCIUM 8.5 mg/dL (8.4-10.2); CREATININE, serum 2.25 mg/dL (0.52-1.25)
[2018-12-15 07:33] VITALS: BP 102/58; PULSE 69
--- NOTE | 2018-12-15 07:49 | NUR ---
Patient assisted up to the chair. She is alert & oriented this am. Her son at bedside. Patient BP continues to be marginal. notifed & will wait to given am medications. Tele on. Patient working on breakfast denies nausea. Her illeo conduit to DD, peach colored with sedimant noted. IVf per orders to Rfa. Will monitor.
--- NOTE | 2018-12-15 09:26 | NUR ---
SW met with the patient to discuss discharge plan. The patient lives alone in [place]. She states that her daughter, Oliva, lives in town. She reports needing assistance with bathing and has a walker. She reports having home health services that help with bathing, but could not recall what agency it was. The patient's PCP is Dr. Katty Tse and she receives her medications at [facility]. She reports no difficulties obtaining her meds. The patient's advanced directives are in EMR. The patient plans to return home upon discharge and resume home health services. No additional needs at this time.
--- NOTE | 2018-12-15 09:48 | NUR ---
Patient sitting up in chair. Held metoprolol & midamor per orders. All other am meds given. Patient denies pain. Illeoconduit continues to drain adequately. Will monitor.
[2018-12-15 11:04] VITALS: BP 102/53; PULSE 72; TEMP 98.3
--- NOTE | 2018-12-15 11:50 | NUR ---
Initial visit; Sayra and family thanked Chapanshulan for looking in on her. Sayra requested prayer and was receptive to [employer] keeping her in her prayers as well.
--- NOTE | 2018-12-15 14:59 | NUR ---
Dr. Francisco called update given. Plans for patient to stay the night. Patient and son made aware. Patient has not felt well this afternoon, tylenol did help her headache. She has no appetitie. SHe has been resting this afternoon. Will continue to [facility]
[2018-12-15 15:53] VITALS: BP 94/51; PULSE 72; TEMP 98.2
--- NOTE | 2018-12-15 19:33 | NUR ---
rounded. Orders obtained. Urine culture sent to lab. Unable to obtain via straight cath in illeo conduit- aware of the difficulty advancing-He is aware new ostomy appliace applied to stoma & Urine sent to lab via ostomy bag. Patient still has minimal appetite, only wanted a yogurt for dinner. IVf to Rfa. ostomy output adequate today, yellow with sediment present. Scds ble. Patient just wanting to rest. Report to Sen Perez
--- NOTE | 2018-12-15 20:00 | NUR ---
Patient in bed resting. Alert and oriented x3. Shift assessment complete. Ileal conduit draining adequately with yellow urine present. Fluids infusing to right AC IV. SCDs to BLE. Denies pain or further needs at this time.
[2018-12-16 00:55] VITALS: BP 82/67; PULSE 17; PULSE 78; TEMP 98.6
[2018-12-16 02:12] VITALS: BP 101/55; PULSE 73
--- NOTE | 2018-12-16 05:59 | NUR ---
Patient has rested well through the night. Continues to deny pain at this time. Ileal conduit without complications, clear yellow urine present. Denies further needs at this time. Will report off to day shift.
[2018-12-16 06:05] LABS: MEAN CELL VOLUME 98 fl (80.0-100.0); MEAN CORPUSCULAR HGB CONC 32 g/dl (33.0-37.0); MEAN PLATELET VOLUME 9.6 fl (7.4-10.4); PLATELET COUNT 313 K/mm3 (130-400); RED BLOOD COUNT 2.57 M/mm3 (4.10-5.30); REDCELL DISTRIBUTION WIDTH-CV 15.7 % (11.5-14.5)
[2018-12-16 06:08] LABS: HEMATOCRIT 25.1 % (37.0-47.0); HEMOGLOBIN 8.1 g/dl (12.5-16.0); MEAN CORPUSCULAR HEMOGLOBIN 32 pg (27.0-31.0)
[2018-12-16 06:22] LABS: CALCIUM 8.3 mg/dL (8.4-10.2); CREATININE, serum 2.09 mg/dL (0.52-1.25); POTASSIUM 4.3 mmol/L (3.4-5.0)
[2018-12-16 08:00] VITALS: BP 89/39; PULSE 71; TEMP 97.9
--- NOTE | 2018-12-16 09:47 | NUR ---
Follow-up visit; Sayra doing better this morning. wished her a good day and a good recovery.
--- NOTE | 2018-12-16 10:00 | NUR ---
Patient is sitting up in bed. Did not want to sit in the recliner. She is tolerating regular diet well. No complaints of pain or nausea. Discussed that she would like to discharge today. Explained it depends on when Dr Francisco rounds. No other changes at this time. Call light within reach.
[2018-12-16 11:19] VITALS: BP 94/48; PULSE 95; TEMP 97.9
--- NOTE | 2018-12-16 14:15 | NUR ---
Patient is discharging home. Explained discharge instructions. INT discontinued. All belongings packed up and sent with patient. Dr Francisco's office will call with follow up. Patient is being walked out via wheel chair by Randolph SUMMERS.
--- NOTE | 2018-12-16 14:22 | NUR ---
JUMANA followed up with the patient and patient's son-in-law on the name of the patient's home health agency. The patient's son-in-law informed JUMANA that it is [facility]. JUMANA contacted Mya at [facility] and confirmed services of care home/PT/homehealth aide. The patient is to discharge back home home today, 12/16, and resume home health services. No additional needs at this time.
== END 2018-12-16 14:15 | disposition home or self-care (01) ==
LOC: SDCO 11:02 → SURG 13:50 → SDCO 14:28 → SURG 14:28
PROVIDERS: ADMIT Urology
DX: N19 Unspecified kidney failure (principal); N13.1 Hydronephrosis with ureteral stricture, not elsewhere classified; I48.91 Unspecified atrial fibrillation; D64.9 Anemia, unspecified; F32.9 Major depressive disorder, single episode, unspecified; K21.9 Gastro-esophageal reflux disease without esophagitis; I10 Essential (primary) hypertension; E87.6 Hypokalemia; E83.42 Hypomagnesemia; N39.0 Urinary tract infection, site not specified; I49.5 Sick sinus syndrome; D69.6 Thrombocytopenia, unspecified; F17.210 Nicotine dependence, cigarettes, uncomplicated; Z95.0 Presence of cardiac pacemaker; Z90.6 Acquired absence of other parts of urinary tract; Z96.641 Presence of right artificial hip joint; Z88.8 Allergy status to other drugs, medicaments and biological substances; Z79.01 Long term (current) use of anticoagulants; Z85.828 Personal history of other malignant neoplasm of skin; Z85.51 Personal history of malignant neoplasm of bladder; Z80.9 Family history of malignant neoplasm, unspecified; Z82.49 Family history of ischemic heart disease and other diseases of the circulatory system
CPT/HCPCS: A9284; C1726; C1769; C2617; G0378; J0690; J2405; J2704; J3010; J7120; Q9967